=== PATIENT | female | born 1945 | race Two or more races ===

== ENCOUNTER 2024-01-19 17:49 | Emergency (ER) | payer OTHER ==
[~2024-01-19] VITALS: Ht 149.9 cm; Wt 45.4 kg
[~2024-01-19 17:49] MED LIST: CRESTOR20 MG; GLUMETZA500 MG; HORIZANT300 MG
[2024-01-19] MEDS ORDERED: NEURONTIN300 MG (18:01)
[2024-01-19] MEDS ORDERED: PROTONIX40 MG (18:01)
[2024-01-19] MEDS ORDERED: KETOROLAC TROMETHAMINE 15 MG VIAL IV ONE (19:00)
[2024-01-19] MEDS ORDERED: KETOROLAC TROMETHAMINE 30 MG VIAL ONE (19:04)
[2024-01-19 19:48] LABS: HEMATOCRIT 38.6 % (36.0-45.00); HEMOGLOBIN 13.1 g/dL (12.0-15.00); MEAN CELL VOLUME 91.4 fL (80.00-100.00); MEAN CORPUSCULAR HEMOGLOBIN 31.1 pg (27.00-32.0); PLATELET COUNT 318 K/uL (150-450); RED BLOOD COUNT 4.23 M/uL (4.00-6.00); RED CELL DISTRIBUTION WIDTH 17.8 % (11.5-14.5)
[2024-01-19 20:25] LABS: ALBUMIN 3.6 gm/dL (3.4-5.0); BILIRUBIN TOTAL 0.53 mg/dL (0.3-1.2); CALCIUM 10.1 mg/dL (8.5-10.1); CREATININE SERUM 0.78 mg/dL (0.55-1.02); GFR 71.81; GLOBULINA 3.7 G/DL (2.4-3.5); POTASSIUM 5.23 mEq/L (3.5-5.1); TOTAL PROTEIN 7.3 gm/dL (6.4-8.2)
[2024-01-19 20:47] LABS: PH,URINE 6.5 (5.0-8.0); URINE APPEARANCE Clear; URINE BILIRRUBIN Negative (NEGATIVE); URINE BLOOD Negative; URINE COLOR Yellow; URINE GLUCOSE Negative (NEGATIVE); URINE KETONE Trace (NEGATIVE); URINE LEUKOCYTE Negative; URINE NITRATE Negative; URINE PROTEIN Negative (NEGATIVE)
[2024-01-19 20:49] LABS: URINE BACTERIA 21.4 uL (0.0-1933); URINE EPITHELIAL CELLS 3.3 uL (0.0-38.8); URINE RBC 13.7 uL (0.0-20.8); URINE WBC 3.8 uL (0.0-23.2)
[2024-01-20] MEDS ORDERED: MEPERIDINE HCL/PF 50 MG/ML VIAL IM ONE (01:30)
[2024-01-20] MEDS ORDERED: PROMETHAZINE HCL 25 MG/ML AMPUL IM ONE (01:30)
[2024-01-20] MEDS ORDERED: PROMETHAZINE HCL 25 MG/ML AMPUL ONE (01:32)
[2024-01-20] MEDS ORDERED: KETOROLAC TROMETHAMINE 30 MG VIAL ONE (12:38)
[2024-01-20] MEDS ORDERED: KETOROLAC TROMETHAMINE 30 MG VIAL IM ONE (12:45)
== END 2024-01-21 00:36 | disposition home or self-care (01) ==
LOC: ER 17:50
PROVIDERS: General Practice
DX: K56.699 Other intestinal obstruction unspecified as to partial versus complete obstruction (principal)
CPT/HCPCS: 36415; 74177; 99285; J1885; J2250; Q9965